=== PATIENT | female | born 1940 | race Caucasian/White ===

== ENCOUNTER 2016-06-05 10:58 | Inpatient (IN) | payer MEDICARE ==
[~2016-06-05] VITALS: Ht 152.4 cm; Wt 80.7 kg
[2016-06-05] MEDS ORDERED: SODIUM CHLORIDE 0.9% 1,000 ML ONE (11:55)
[2016-06-05] MEDS ORDERED: CEFTRIAXONE 1 GM VIAL ONE (13:32)
[2016-06-05] MEDS ORDERED: SODIUM CHLORIDE 0.9% 100 ML IV ONE (13:32)
[2016-06-05] MEDS ORDERED: PHARMACY TO DOSE IV SCH (14:55)
[2016-06-05] MEDS ORDERED: SODIUM CHLORIDE 0.9% 1,000 ML IV SCH (14:55)
[2016-06-05] MEDS ORDERED: ACETAMINOPHEN 325 MG TAB PO PRN (14:55)
[2016-06-05] MEDS ORDERED: MAG HYDROX 30 ML UDC PO PRN (14:55)
[2016-06-05] MEDS ORDERED: SALINE FLUSH 10 ML FLUSH PRN (14:55)
[2016-06-05] MEDS ORDERED: BISACODYL EC 5 MG TAB PO PRN (14:55)
[2016-06-05] MEDS ORDERED: ONDANSETRON 4 MG VIAL IV PRN (14:55)
[2016-06-05] MEDS ORDERED: ALU/MAG/SIM 30 ML UDC PO PRN (14:55)
[2016-06-05] MEDS ORDERED: BISACODYL 10 MG SUPP RECTAL PRN (14:55)
[2016-06-05 16:09] VITALS: BP_SYST 129; RESP 16; TEMP 98
[2016-06-05 16:20] VITALS: BMI 37.1
[2016-06-05] MEDS: MEGESTROL ACE 40 MG TAB PO SCH ×2 (17:45→21:22)
[2016-06-05] MEDS: NYSTATIN PWD 100,000 UNITS/GM 15 GM TOPICAL SCH ×2 (17:46→21:00)
[2016-06-05 19:30] VITALS: RESP 18
[2016-06-05 19:57] VITALS: BP_SYST 152; RESP 18; TEMP 98.4
[2016-06-05] MEDS: EZETIMIBE 10 MG TAB PO SCH (21:22)
[2016-06-05] MEDS: LEVETIRACETAM 500 MG TAB PO SCH (21:22)
[2016-06-05] MEDS: SALINE FLUSH 10 ML FLUSH SCH (21:22)
[2016-06-05 23:20] VITALS: BP_SYST 148; RESP 18; TEMP 98
[2016-06-06 03:30] VITALS: BP_SYST 152; RESP 18; TEMP 97.9
[2016-06-06] MEDS: SODIUM CHLORIDE 0.9% FLUSH BAG 500 ML IV SCH (05:33)
[2016-06-06] MEDS: PANTOPRAZOLE 40 MG TAB PO SCH (06:42)
[2016-06-06] MEDS: LEVOTHYROXINE 0.088 MG TAB PO SCH (06:42)
[2016-06-06 07:44] VITALS: BP_SYST 137; RESP 18; TEMP 98.4
[2016-06-06] MEDS ORDERED: KCL CR 20 MEQ TAB PO ONE (08:10)
[2016-06-06] MEDS: SALINE FLUSH 10 ML FLUSH SCH ×2 (08:22→20:00)
[2016-06-06] MEDS: TOLTERODINE LA 2 MG CAP PO SCH (08:23)
[2016-06-06] MEDS: MEGESTROL ACE 40 MG TAB PO SCH ×3 (08:24→21:35)
[2016-06-06] MEDS: NYSTATIN PWD 100,000 UNITS/GM 15 GM TOPICAL SCH ×3 (08:24→21:35)
[2016-06-06] MEDS: SERTRALINE 50 MG TAB PO SCH (08:24)
[2016-06-06] MEDS: LEVETIRACETAM 500 MG TAB PO SCH ×2 (08:24→21:35)
[2016-06-06] MEDS: DEXAMETHASONE 4 MG TAB PO SCH (08:24)
[2016-06-06] MEDS: ENOXAPARIN 40 MG/0.4 ML SYR SUBQ SCH (08:25)
[2016-06-06] MEDS: CEFTRIAXONE 1 GM in SODIUM CHLORIDE 0.9% 50 ML IV SCH (08:27)
[2016-06-06 09:37] VITALS: Ht 152.4 cm; Wt 80.7 kg
[2016-06-06 11:09] VITALS: BP_SYST 144; RESP 16; TEMP 98.9
[2016-06-06 15:26] VITALS: BP_SYST 120; RESP 18; TEMP 99.1
[2016-06-06 19:00] VITALS: BP_SYST 130; RESP 18; TEMP 98.2
[2016-06-06] MEDS ORDERED: SODIUM CHLORIDE 0.9% 1,000 ML IV ONE (20:35)
[2016-06-06] MEDS: EZETIMIBE 10 MG TAB PO SCH (21:35)
[2016-06-06 23:17] VITALS: BP_SYST 144; RESP 18; TEMP 98.7
[2016-06-07 03:30] VITALS: BP_SYST 149; RESP 20; TEMP 98.1
[2016-06-07] MEDS: SODIUM CHLORIDE 0.9% FLUSH BAG 500 ML IV SCH ×2 (06:00→09:14)
[2016-06-07] MEDS: PANTOPRAZOLE 40 MG TAB PO SCH (06:41)
[2016-06-07] MEDS: LEVOTHYROXINE 0.088 MG TAB PO SCH (06:41)
[2016-06-07 07:48] VITALS: BP_SYST 122; RESP 20; TEMP 98.5
[2016-06-07] MEDS: ENOXAPARIN 40 MG/0.4 ML SYR SUBQ SCH (08:59)
[2016-06-07] MEDS: SALINE FLUSH 10 ML FLUSH SCH ×2 (08:59→20:33)
[2016-06-07] MEDS: LEVETIRACETAM 500 MG TAB PO SCH ×2 (09:00→20:33)
[2016-06-07] MEDS: NYSTATIN PWD 100,000 UNITS/GM 15 GM TOPICAL SCH ×3 (09:00→21:00)
[2016-06-07] MEDS: MEGESTROL ACE 40 MG TAB PO SCH ×3 (09:00→20:33)
[2016-06-07] MEDS: DEXAMETHASONE 4 MG TAB PO SCH (09:00)
[2016-06-07] MEDS: TOLTERODINE LA 2 MG CAP PO SCH (09:00)
[2016-06-07] MEDS: SERTRALINE 50 MG TAB PO SCH (09:00)
[2016-06-07] MEDS: CEFTRIAXONE 1 GM in SODIUM CHLORIDE 0.9% 50 ML IV SCH (09:14)
[2016-06-07 11:14] VITALS: BP_SYST 134; RESP 18; TEMP 98.5
[2016-06-07 15:36] VITALS: BP_SYST 126; RESP 20; TEMP 97.7
[2016-06-07] MEDS: BENZONATATE 100 MG CAP PO PRN (17:54)
[2016-06-07 19:00] VITALS: BP_SYST 129; RESP 20; TEMP 99.2
[2016-06-07] MEDS: EZETIMIBE 10 MG TAB PO SCH (20:33)
[2016-06-07 23:22] VITALS: BP_SYST 155; RESP 18; TEMP 99.1
[2016-06-08 03:14] VITALS: BP_SYST 129; RESP 16; TEMP 98.3
[2016-06-08] MEDS: LEVOTHYROXINE 0.088 MG TAB PO SCH (06:44)
[2016-06-08] MEDS: PANTOPRAZOLE 40 MG TAB PO SCH (06:44)
[2016-06-08 07:25] VITALS: BP_SYST 147; RESP 16; TEMP 98.6
[2016-06-08] MEDS: SALINE FLUSH 10 ML FLUSH SCH ×2 (08:53→20:43)
[2016-06-08] MEDS: ENOXAPARIN 40 MG/0.4 ML SYR SUBQ SCH (08:54)
[2016-06-08] MEDS: BENZONATATE 100 MG CAP PO PRN ×2 (08:55→17:42)
[2016-06-08] MEDS: CEFTRIAXONE 1 GM in SODIUM CHLORIDE 0.9% 50 ML IV SCH (08:55)
[2016-06-08] MEDS: TOLTERODINE LA 2 MG CAP PO SCH (08:56)
[2016-06-08] MEDS: DEXAMETHASONE 4 MG TAB PO SCH (08:56)
[2016-06-08] MEDS: SERTRALINE 50 MG TAB PO SCH (08:56)
[2016-06-08] MEDS: LEVETIRACETAM 500 MG TAB PO SCH ×2 (08:56→20:44)
[2016-06-08] MEDS: MEGESTROL ACE 40 MG TAB PO SCH ×3 (08:56→20:44)
[2016-06-08 12:05] VITALS: BP_SYST 132; RESP 20; TEMP 98.5
[2016-06-08 15:21] VITALS: BP_SYST 105; RESP 18; TEMP 98.2
[2016-06-08] MEDS ORDERED: MISSING DOSE XX ONE ×2 (17:20)
[2016-06-08] MEDS: NYSTATIN PWD 100,000 UNITS/GM 15 GM TOPICAL SCH ×3 (17:42→20:43)
[2016-06-08 19:49] VITALS: BP_SYST 100; RESP 18; TEMP 98.1
[2016-06-08] MEDS: EZETIMIBE 10 MG TAB PO SCH (20:44)
[2016-06-08 23:27] VITALS: BP_SYST 116; RESP 18; TEMP 98.4
[2016-06-09 03:18] VITALS: BP_SYST 122; RESP 18; TEMP 97.8
[2016-06-09] MEDS: SODIUM CHLORIDE 0.9% FLUSH BAG 500 ML IV SCH (06:09)
[2016-06-09] MEDS: PANTOPRAZOLE 40 MG TAB PO SCH (06:09)
[2016-06-09] MEDS: LEVOTHYROXINE 0.088 MG TAB PO SCH (06:10)
[2016-06-09 07:21] VITALS: BP_SYST 134; RESP 18; TEMP 98.3
[2016-06-09] MEDS: CEFTRIAXONE 1 GM in SODIUM CHLORIDE 0.9% 50 ML IV SCH (09:06)
[2016-06-09] MEDS: SALINE FLUSH 10 ML FLUSH SCH ×2 (09:06→20:11)
[2016-06-09] MEDS: DEXAMETHASONE 4 MG TAB PO SCH (09:06)
[2016-06-09] MEDS: SERTRALINE 50 MG TAB PO SCH (09:07)
[2016-06-09] MEDS: LEVETIRACETAM 500 MG TAB PO SCH ×2 (09:07→20:10)
[2016-06-09] MEDS: TOLTERODINE LA 2 MG CAP PO SCH (09:07)
[2016-06-09] MEDS: MEGESTROL ACE 40 MG TAB PO SCH ×3 (09:07→20:10)
[2016-06-09] MEDS: NYSTATIN PWD 100,000 UNITS/GM 15 GM TOPICAL SCH ×3 (09:08→20:11)
[2016-06-09] MEDS: ENOXAPARIN 40 MG/0.4 ML SYR SUBQ SCH (09:08)
[2016-06-09 11:38] VITALS: BP_SYST 125; RESP 18; TEMP 97.4
[2016-06-09 15:06] VITALS: BP_SYST 102; RESP 18; TEMP 98.9
[2016-06-09] MEDS: Hydrocodone/APAP 10/325 MG TAB PO PRN ×2 (16:34→20:11)
[2016-06-09 20:02] VITALS: BP_SYST 120; RESP 18; TEMP 98.3
[2016-06-09] MEDS: DOCUSATE SOD 100 MG CAP PO SCH (20:10)
[2016-06-09] MEDS: EZETIMIBE 10 MG TAB PO SCH (20:11)
[2016-06-10] VITALS (8 sets, daily range): BP systolic 117–140; RESP 17–18; TEMP 97.4–98.4
[2016-06-10] MEDS: PANTOPRAZOLE 40 MG TAB PO SCH (05:08)
[2016-06-10] MEDS: SODIUM CHLORIDE 0.9% FLUSH BAG 500 ML IV SCH (05:08)
[2016-06-10] MEDS: LEVOTHYROXINE 0.088 MG TAB PO SCH (05:08)
[2016-06-10] MEDS: NYSTATIN PWD 100,000 UNITS/GM 15 GM TOPICAL SCH ×3 (08:06→21:37)
[2016-06-10] MEDS: LEVETIRACETAM 500 MG TAB PO SCH ×2 (09:09→21:37)
[2016-06-10] MEDS: CEFTRIAXONE 1 GM in SODIUM CHLORIDE 0.9% 50 ML IV SCH (09:09)
[2016-06-10] MEDS: SALINE FLUSH 10 ML FLUSH SCH ×2 (09:09→21:37)
[2016-06-10] MEDS: SERTRALINE 50 MG TAB PO SCH (09:10)
[2016-06-10] MEDS: ENOXAPARIN 40 MG/0.4 ML SYR SUBQ SCH (09:10)
[2016-06-10] MEDS: DOCUSATE SOD 100 MG CAP PO SCH ×2 (09:10→21:37)
[2016-06-10] MEDS: DEXAMETHASONE 4 MG TAB PO SCH (09:10)
[2016-06-10] MEDS: MEGESTROL ACE 40 MG TAB PO SCH ×3 (09:10→21:37)
[2016-06-10] MEDS: TOLTERODINE LA 2 MG CAP PO SCH (09:10)
[2016-06-10] MEDS: Hydrocodone/APAP 10/325 MG TAB PO PRN (10:37)
[2016-06-10] MEDS: EZETIMIBE 10 MG TAB PO SCH (21:37)
[2016-06-11 03:30] VITALS: BP_SYST 168; RESP 18; TEMP 98.1
[2016-06-11] MEDS: SODIUM CHLORIDE 0.9% FLUSH BAG 500 ML IV SCH (06:07)
[2016-06-11] MEDS: PANTOPRAZOLE 40 MG TAB PO SCH (06:23)
[2016-06-11] MEDS: LEVOTHYROXINE 0.088 MG TAB PO SCH (06:23)
[2016-06-11 07:42] VITALS: BP_SYST 131; RESP 18; TEMP 98.2
[2016-06-11] MEDS: CEFTRIAXONE 1 GM in SODIUM CHLORIDE 0.9% 50 ML IV SCH (08:37)
[2016-06-11] MEDS: SALINE FLUSH 10 ML FLUSH SCH ×2 (08:37→21:46)
[2016-06-11] MEDS: SERTRALINE 50 MG TAB PO SCH (08:38)
[2016-06-11] MEDS: TOLTERODINE LA 2 MG CAP PO SCH (08:38)
[2016-06-11] MEDS: MEGESTROL ACE 40 MG TAB PO SCH ×3 (08:38→21:47)
[2016-06-11] MEDS: DOCUSATE SOD 100 MG CAP PO SCH ×2 (08:38→21:46)
[2016-06-11] MEDS: LEVETIRACETAM 500 MG TAB PO SCH ×2 (08:38→21:47)
[2016-06-11] MEDS: ENOXAPARIN 40 MG/0.4 ML SYR SUBQ SCH (08:39)
[2016-06-11] MEDS: DEXAMETHASONE 4 MG TAB PO SCH (08:39)
[2016-06-11] MEDS: NYSTATIN PWD 100,000 UNITS/GM 15 GM TOPICAL SCH ×3 (08:40→21:46)
[2016-06-11 11:09] VITALS: BP_SYST 130; RESP 18; TEMP 97.7
[2016-06-11 15:32] VITALS: BP_SYST 122; RESP 18; TEMP 97.9
[2016-06-11] MEDS ORDERED: KCL CR 10 MEQ CAP PO ONE (17:40)
[2016-06-11 19:27] VITALS: BP_SYST 114; RESP 18; TEMP 98.4
[2016-06-11] MEDS: EZETIMIBE 10 MG TAB PO SCH (21:46)
[2016-06-11 23:25] VITALS: BP_SYST 143; RESP 18; TEMP 97.9
[2016-06-12 04:07] VITALS: BP_SYST 139; RESP 18; TEMP 98.6
[2016-06-12] MEDS: SODIUM CHLORIDE 0.9% FLUSH BAG 500 ML IV SCH (05:29)
[2016-06-12] MEDS: LEVOTHYROXINE 0.088 MG TAB PO SCH (06:30)
[2016-06-12] MEDS: PANTOPRAZOLE 40 MG TAB PO SCH (06:30)
[2016-06-12 07:56] VITALS: BP_SYST 143; RESP 18; TEMP 98.3
[2016-06-12] MEDS: LEVETIRACETAM 500 MG TAB PO SCH ×2 (08:34→20:47)
[2016-06-12] MEDS: DEXAMETHASONE 4 MG TAB PO SCH (08:34)
[2016-06-12] MEDS: MEGESTROL ACE 40 MG TAB PO SCH ×3 (08:35→20:47)
[2016-06-12] MEDS: DOCUSATE SOD 100 MG CAP PO SCH ×2 (08:35→20:47)
[2016-06-12] MEDS: TOLTERODINE LA 2 MG CAP PO SCH (08:35)
[2016-06-12] MEDS: SERTRALINE 50 MG TAB PO SCH (08:35)
[2016-06-12] MEDS: Hydrocodone/APAP 10/325 MG TAB PO PRN ×2 (08:36→20:48)
[2016-06-12] MEDS: SALINE FLUSH 10 ML FLUSH SCH ×2 (08:36→20:48)
[2016-06-12] MEDS: NYSTATIN PWD 100,000 UNITS/GM 15 GM TOPICAL SCH ×3 (08:37→20:49)
[2016-06-12] MEDS: ENOXAPARIN 40 MG/0.4 ML SYR SUBQ SCH (08:37)
[2016-06-12 12:09] VITALS: BP_SYST 119; RESP 18; TEMP 97.6
[2016-06-12 15:53] VITALS: BP_SYST 112; RESP 18; TEMP 97.5
[2016-06-12 19:37] VITALS: BP_SYST 130; RESP 17; TEMP 98
[2016-06-12] MEDS: EZETIMIBE 10 MG TAB PO SCH (20:48)
[2016-06-12 23:59] VITALS: BP_SYST 132; RESP 18; TEMP 97.6
[2016-06-13] VITALS (8 sets, daily range): BP systolic 103–139; RESP 16–20; TEMP 97.5–98.5
[2016-06-13] MEDS: SODIUM CHLORIDE 0.9% FLUSH BAG 500 ML IV SCH (06:00)
[2016-06-13] MEDS: PANTOPRAZOLE 40 MG TAB PO SCH (06:19)
[2016-06-13] MEDS: LEVOTHYROXINE 0.088 MG TAB PO SCH (06:19)
[2016-06-13] MEDS: DEXAMETHASONE 4 MG TAB PO SCH (08:40)
[2016-06-13] MEDS: TOLTERODINE LA 2 MG CAP PO SCH (08:41)
[2016-06-13] MEDS: ENOXAPARIN 40 MG/0.4 ML SYR SUBQ SCH (08:41)
[2016-06-13] MEDS: LEVETIRACETAM 500 MG TAB PO SCH ×2 (08:41→20:38)
[2016-06-13] MEDS: DOCUSATE SOD 100 MG CAP PO SCH ×2 (08:41→20:39)
[2016-06-13] MEDS: MEGESTROL ACE 40 MG TAB PO SCH ×3 (08:41→20:38)
[2016-06-13] MEDS: SERTRALINE 50 MG TAB PO SCH (08:41)
[2016-06-13] MEDS: NYSTATIN PWD 100,000 UNITS/GM 15 GM TOPICAL SCH ×3 (08:42→20:39)
[2016-06-13] MEDS: SALINE FLUSH 10 ML FLUSH SCH ×2 (08:42→20:38)
[2016-06-13] MEDS: EZETIMIBE 10 MG TAB PO SCH (20:38)
[2016-06-14 02:54] VITALS: BP_SYST 120; RESP 16; TEMP 97.7
[2016-06-14] MEDS: SODIUM CHLORIDE 0.9% FLUSH BAG 500 ML IV SCH (06:00)
[2016-06-14] MEDS: PANTOPRAZOLE 40 MG TAB PO SCH (06:38)
[2016-06-14] MEDS: LEVOTHYROXINE 0.088 MG TAB PO SCH (06:38)
[2016-06-14 07:49] VITALS: BP_SYST 119; RESP 18; TEMP 97.9
[2016-06-14] MEDS: DEXAMETHASONE 4 MG TAB PO SCH (08:28)
[2016-06-14] MEDS: DOCUSATE SOD 100 MG CAP PO SCH (08:28)
[2016-06-14] MEDS: LEVETIRACETAM 500 MG TAB PO SCH (08:28)
[2016-06-14] MEDS: SERTRALINE 50 MG TAB PO SCH (08:28)
[2016-06-14] MEDS: MEGESTROL ACE 40 MG TAB PO SCH (08:28)
[2016-06-14] MEDS: TOLTERODINE LA 2 MG CAP PO SCH (08:29)
[2016-06-14] MEDS: ENOXAPARIN 40 MG/0.4 ML SYR SUBQ SCH (08:29)
[2016-06-14] MEDS: SALINE FLUSH 10 ML FLUSH SCH (08:30)
[2016-06-14] MEDS: NYSTATIN PWD 100,000 UNITS/GM 15 GM TOPICAL SCH (08:30)
[2016-06-14 12:11] VITALS: BP_SYST 119; RESP 18; TEMP 97.9
[2016-06-14 12:37] VITALS: BP_SYST 117; RESP 16; TEMP 97.6
== END 2016-06-14 13:27 | DRG 690 ==
LOC: ENRESERVTM → ENRESERVDT → ER 10:58 → EMR 14:51 → PCU 15:57 → PCU2 18:15 → ENPENDDIS 06-06 15:49 → OBSVTOIN 06-06 15:49
PROVIDERS: ADMIT Hospitalist; ATTEND Hospitalist
DX: N39.0 Urinary tract infection, site not specified (principal); C71.9 Malignant neoplasm of brain, unspecified; E86.0 Dehydration; B96.20 Unspecified Escherichia coli [E. coli] as the cause of diseases classified elsewhere; R53.1 Weakness; E03.9 Hypothyroidism, unspecified; E78.5 Hyperlipidemia, unspecified; M19.90 Unspecified osteoarthritis, unspecified site; Z96.652 Presence of left artificial knee joint; Z92.3 Personal history of irradiation; Z92.21 Personal history of antineoplastic chemotherapy; M54.9 Dorsalgia, unspecified; M25.569 Pain in unspecified knee; E87.6 Hypokalemia; R11.2 Nausea with vomiting, unspecified
CPT/HCPCS: 36415; 70450; 70470; 71010; 80048; 80053; 81001; 83935; 84300; 84439; 84443; 85025; 87040; 87077; 87088; 87186; 94799; 96361; 96365; 99220; 99232; 99233; 99238